=== PATIENT | male | born 1990 | race African-American/Black ===

== ENCOUNTER 2016-07-26 22:15 | Emergency (ER) | payer BC, OTHER ==
[~2016-07-26] VITALS: Ht 177.8 cm; Wt 74.8 kg
[2016-07-26] MEDS ORDERED: LIDOCAINE 1% INJ 20 ML (XYLOCAINE) VIAL ONE (22:24)
[2016-07-26] MEDS ORDERED: LIDOCAINE 2% 20 ML (XYLOCAINE) VIAL INJ ONE (22:30)
[2016-07-26] MEDS ORDERED: CEPHALEXIN 250 MG (KEFLEX) CAP PO ONE (22:30)
--- NOTE | 2016-07-26 22:31 | ED Upper Extremity ---
General Stated Complaint: L HAND LACERATION Source: patient Exam Limitations: no limitations (AGAPITO BROWN MD) History of Present Illness Time seen by provider: 22:21 Initial Comments Here with report of laceration to the base of the third finger. He was doing dishes and dropped a bowl. He tried to catch it and it broke cutting his finger. Tetanus is up-to-date. Denies other injury. Right hand dominant. Patient is on Humira for Crohn's disease. Onset: just prior to arrival Severity: mild Pain/Injury Location: left hand Method of Injury: incised Modifying Factors: Improves With Immobilization, Worse With Movement (AGAPITO BROWN MD) Allergies and Home Medications Allergies Coded Allergies: No Known Drug Allergies (Unverified , 07/26/16) Constitutional: see HPI, No chills, No fever Respiratory: no symptoms reported Cardiovascular: no symptoms reported Skin: see HPI, lesions, No rash Psychiatric/Neurological: No Symptoms Reported (AGAPITO BROWN MD) Past [place]-Exvfmo-Xrovun Hx Patient Social History Alcohol Use: Denies Use Recreational Drug Use: No Smoking Status: Never a Smoker Recent Foreign Travel: No Contact w/Someone Who Travel: No (AGAPITO BROWN MD) Surgeries HX Surgeries: Yes Surgeries: Orthopedic (AGAPITO BROWN MD) Gastrointestinal Hx Gastrointestinal Disorders: Yes Gastrointestinal Disorders: Crohns Disease (AGAPITO BROWN MD) Reviewed Nursing Assessment Reviewed/Agree w Nursing PMH: Yes (AGAPITO BROWN MD) Family Medical History Significant Family History: No Pertinent Family Hx (AGAPITO BROWN MD) Physical Exam Vital Signs Capillary Refill : (AGAPITO BROWN MD) General Appearance: WD/WN, no apparent distress Cardiovascular: regular rate, rhythm, no murmur Respiratory: lungs clear, normal breath sounds Hand: Left, laceration (base of left finger on the dorsum of the hand with 1 cm laceration with bleeding controlled. There is another small abrasion near the base of the fourth finger on the dorsum that is superficial.) Neurologic/Tendon: normal sensation, normal motor functions, normal tendon functions Neurologic/Psychiatric: alert, oriented x 3 Skin: normal color, warm/dry (AGAPITO BROWN MD) Laceration Repair : Wound Location: Upper Extremities Wound Length (cm): 0.5 Wound's Depth, Shape: sub Q Betadine Prep?: Yes Anesthesia: 1% Lidocaine Volume Anesthetic (ccs): 1 Suture: Ethlion Suture Size: 5-0 Number of Sutures: 2 Layer Closure?: 1 Number Deep Layer Sutures: 0 Progress Anesthetized with 1 mL of lidocaine. Scrubbed with Betadine/saline. Irrigated with saline. Closed with 2 simple interrupted sutures. (DERIK BOWEN APRN) Progress/Results/Core Measures Results/Orders My Orders Orders - DERIK BOWEN APRN Cephalexin Capsule (Keflex Capsule) (07/26/16 22:30) Lidocaine 2% Injection 20 Ml (Xylocaine (07/26/16 22:30) Lidocaine 1% Injection (Xylocaine 1% Inj (07/26/16 22:24) (DERIK BOWEN APRN) Progress Note : Progress Note Seen and evaluated. Laceration repair by Derik Bowen APRN. Discharged home with return precautions. Patient verbalize understanding instructions and agreement with plan. (AGAPITO BROWN MD) Departure Impression Impression: Primary Impression: Laceration of hand, left Qualified Codes: S61.412A - Laceration without foreign body of left hand, initial encounter Disposition: 01 HOME, SELF-CARE Condition: Improved Departure-Patient Inst. Decision time for Depature: 22:29 (AGAPITO BROWN MD) Referrals: NO,LOCAL PHYSICIAN (PCP) Primary Care Physician Patient Instructions: Laceration Repair With Stitches (DC) Add. Discharge Instructions: Sutures out in 7-10 days. You may use antibiotic ointment and Band-Aid over wound for the next 5 days and then dry dressing as needed.. Keep wound clean and dry otherwise. You may wash the wound twice daily and reapply antibiotic. You may shower but do not soak the wound in any body of water including bath tub , pool or [place]. Return for worse pain, swelling, redness, red streaks up the arm or other concerns as needed. You may take Tylenol 1000 mg every 8 hours as needed for pain. AGAPITO BROWN MD July 26, 2016 22:31 DERIK BOWEN APRN July 26, 2016 22:42
[2016-07-26 22:49] VITALS: BP 123/79
== END 2016-07-26 22:48 | disposition home or self-care (01) ==
LOC: ER 22:21
DX: S61.412A Laceration without foreign body of left hand, initial encounter (principal); K50.90 Crohn's disease, unspecified, without complications; Z79.899 Other long term (current) drug therapy; W25.XXXA Contact with sharp glass, initial encounter; Y93.G1 Activity, food preparation and clean up; Y99.8 Other external cause status
CPT/HCPCS: 12041